=== PATIENT | male | born 2000 | race Caucasian/White ===

== ENCOUNTER 2018-09-27 21:01 | Emergency (ER) | payer MEDICAID ==
[2018-09-27 21:08] VITALS: RESP 18; O2SAT 99; BMI 21.1
--- NOTE | 2018-09-27 21:16 | ED PDOC ---
Arrival/HPI - General Historian: Patient - History of Present Illness Narrative History of Present Illness (Text): 09/27/18 21:28 Patient is a 17 year old male with no significant past medical history who presents to the emergency department for fever and generalized body aches that started today. Patient states that he felt feverish 3 hours prior to arrival and took Tylenol. He admits to having trouble sleeping, throat discomfort and headache. He denies any sick contacts. He denies any nausea, vomiting, changes in appetite, rhinorrhea, chest pain, shortness of breath, palpitations, abdominal pain, diarrhea, constipation, urinary symptoms. Allergies: NKDA Medications: Denies Medical History: Denies Surgical History: Denies Social History: Denies alcohol, tobacco, drug use Family History: Denies Time/Duration: 24 hours Symptom Onset: Gradual Symptom Course: Worsening <Linda Valencia - Last Filed: 09/28/18 04:48> <Charbel Crowder - Last Filed: 09/28/18 19:48> - General Chief Complaint: Fever Time Seen by Provider: 09/27/18 21:16 Past Medical History - Provider Review Nursing Documentation Reviewed: Yes - Past History Past History: No Previous - Infectious Disease Hx of Infectious Diseases: None - Tetanus Immunization Tetanus Immunization: Unknown - Psychiatric Hx Substance Use: No - Past Surgical History Past Surgical History: No Previous - Anesthesia Hx Anesthesia: No <Linda Valencia - Last Filed: 09/28/18 04:48> Family/Social History - Physician Review Nursing Documentation Reviewed: Yes Family/Social History: No Known Family HX Smoking Status: Never Smoked Hx Alcohol Use: No Hx Substance Use: No <Linda Valencia - Last Filed: 09/28/18 04:48> Allergies/Home Meds <Linda Valencia - Last Filed: 09/28/18 04:48> <Chabrel Crowder - Last Filed: 09/28/18 19:48> Allergies/Adverse Reactions: Allergies No Known Allergies Allergy (Verified 10/12/14 20:18) Review of Systems - Physician Review All systems were reviewed & negative as marked: Yes - Review of Systems Constitutional: Fevers ENT: Normal. absent: Hearing Changes Respiratory: Normal. absent: SOB, Cough, Wheezing Cardiovascular: Normal. absent: Chest Pain, Palpitations Gastrointestinal: Normal. absent: Abdominal Pain, Constipation, Diarrhea, Nausea, Vomiting, Appetite Changes Genitourinary Male: Normal. absent: Dysuria, Hematuria Musculoskeletal: Back Pain Neurological: Headache. absent: Dizziness <ErikLinda - Last Filed: 09/28/18 04:48> Physical Exam Vital Signs Reviewed: Yes Vital Signs Temp Pulse Resp BP Pulse Ox 09/27/18 21:06 99.6 F 98 H 18 135/89 99 Temperature: Afebrile Blood Pressure: Normal Pulse: Regular Respiratory Rate: Normal Appearance: Positive for: Non-Toxic Pain Distress: Mild Mental Status: Positive for: Alert and Oriented X 3 - Systems Exam Head: Present: Atraumatic, Normocephalic Pupils: Present: PERRL Extroacular Muscles: Present: EOMI Conjunctiva: Present: Normal Ears: Present: Normal Mouth: Present: Moist Mucous Membranes Pharnyx: Present: ERYTHEMA. No: EXUDATE, TONSILS ENLARGED, Uvular Deviation Nose (External): Present: Atraumatic Nose (Internal): Present: Normal Inspection Neck: Present: Normal Range of Motion. No: Meningeal Signs Respiratory/Chest: Present: Clear to Auscultation, Good Air Exchange. No: Respiratory Distress, Accessory Muscle Use Cardiovascular: Present: Regular Rate and Rhythm, Normal S1, S2 Abdomen: Present: Normal Bowel Sounds. No: Tenderness, Distention, Peritoneal Signs Back: No: CVA Tenderness Upper Extremity: Present: Normal Inspection Lower Extremity: Present: Normal Inspection, NORMAL PULSES. No: CALF TENDERNESS Neurological: Present: GCS=15 Skin: Present: Warm, Dry, Normal Color Psychiatric: Present: Alert, Oriented x 3 <ErikLinda - Last Filed: 09/28/18 04:48> Vital Signs Temp Pulse Resp BP Pulse Ox 09/27/18 21:46 99.5 F 90 18 135/72 99 09/27/18 21:06 99.6 F 98 H 18 135/89 99 <Charbel Crowder - Last Filed: 09/28/18 19:48> Medical Decision Making ED Course and Treatment: 09/27/18 21:35 Patient seen and examined at bedside. Patient complaining of fevers, generalized body aches and throat discomfort. On exam, throat erythematous, no exudates. We will treat with amoxicillin 500mg TID x 10 days and have patient follow up with PMD. <Linda Valencia - Last Filed: 09/28/18 04:48> - PA / [employer] / Resident Statement FIOR has reviewed & agrees with the documentation as recorded. FIOR has examined the patient and agrees with the treatment plan. <Charbel Crowder - Last Filed: 09/28/18 19:48> Disposition/Present on Arrival - Present on Arrival Any Indicators Present on Arrival: No History of DVT/PE: No History of Uncontrolled Diabetes: No Urinary Catheter: No History of Decub. Ulcer: No History Surgical Site Infection Following: None - Disposition Have Diagnosis and Disposition been Completed?: Yes Disposition Time: 21:37 Patient Plan: Discharge <Linda Valencia - Last Filed: 09/28/18 04:48> <Charbel Crowder - Last Filed: 09/28/18 19:48> - Disposition Diagnosis: Pharyngitis, Generalized body aches, Fever Disposition: HOME/ ROUTINE Condition: GOOD Discharge Instructions (ExitCare): Viral Pharyngitis, Sore Throat in Adults Additional Instructions: - Increase PO hydration - You can take Tylenol or Motrin OTC as needed for fever or pain - You have been prescribed antibiotics, please complete the course - Follow up with PMD within 2-3 days - If symptoms worsen, please return to emergency department Prescriptions: RX: Amoxicillin 500 mg PO Q8H 10 Days #30 tablet Acetaminophen [Tylenol] 650 mg PO Q6H PRN #20 capsule PRN Reason: Fever >100.4 F Forms: [employer] (Romansh)
[2018-09-27 21:58] VITALS: BP 135/72; PULSE 90; TEMP 99.5
== END 2018-09-27 21:58 | disposition home or self-care (01) ==
LOC: ED 21:01
DX: J02.9 Acute pharyngitis, unspecified (principal); R50.9 Fever, unspecified; R52 Pain, unspecified